=== PATIENT | male | born 1945 | race African-American/Black ===

== ENCOUNTER 2017-12-02 15:23 | Emergency (ER) | payer BC ==
[~2017-12-02] VITALS: Ht 180.3 cm; Wt 90.7 kg
--- NOTE | 2017-12-02 16:31 | Emergency Room Report ---
History of Present Illness General Chief Complaint: Upper Extremity Injury Source: Patient (Alison Chris) Present Illness HPI 72-year-old male presents to the emergency department complaining of 6 out of 10 in severity localized left forearm pain 2 days. Patient reports acute onset of pain after having a left large load out of a truck on his own 2 days ago. Patient denies bruising, swelling, skin color changes orders temperature changes of the extremity. Patient denies pain elsewhere in the body such as chest or jaw. He denies trauma or fall. Denies numbness tingling or loss of sensation or gross motor movements of the extremity. Denies CP, Palpitations, LOC, AMS, dizziness, Changes in Vision, Sensation, paresthesias, or a sudden severe headache. (Alison Chris) Allergies: Coded Allergies: No Known Allergies (Unverified , 12/02/17) Patient History Past Medical History: see triage record Past Surgical History: none Pertinent Family History: none Reviewed Nursing Documentation: PMH: Agreed; PSxH: Agreed (Alison Chris) Nursing Documentation-PMH Past Medical History: No Stated History (Alison Chris) Review of Systems All Other Systems: negative except mentioned in HPI (Alison Chris) Physical Exam Vital Signs Date Time Temp Pulse Resp B/P (MAP) Pulse Ox O2 Delivery O2 Flow Rate FiO2 12/02/17 15:46 97.3 91 16 171/98 95 Room Air 97.3 Sp02 EP Interpretation: reviewed, normal General Appearance: no apparent distress, alert, GCS 15, non-toxic Head: normocephalic, atraumatic ENT: hearing grossly normal, normal voice Neck: full range of motion Respiratory: lungs clear, normal breath sounds, speaking full sentences Cardiovascular #1: regular rate, rhythm, normal capillary refill Musculoskeletal: back normal, gait/station normal, normal range of motion, tender - TTp to the left brachioradialis area. FROM against resistance with some illicitation of pain. normal distal radial pulse. Neurologic: alert, oriented x3, responsive, motor strength/tone normal, sensory intact, speech normal, grossly normal Psychiatric: judgement/insight normal Skin: normal color, no rash, warm/dry, well hydrated Lymphatic: no adenopathy (Alison Chris) Medical Decision Making PA Attestation Dr. vergara is my supervising Physician whom patient management has been discussed with. (Alison Chris) Medicare Attestation The history of Everett Pitts has been reviewed and management options for him have been examined and discussed by Larry Padilla. I have personally examined and interviewed the patient. (Larry Padilla MD) Diagnostic Impression: Primary Impression: Muscle strain of left forearm Qualified Codes: S56.912A - Strain of unspecified muscles, fascia and tendons at forearm level, left arm, initial encounter ER Course 72-year-old male presents to the emergency department complaining of 6 out of 10 in severity localized left forearm pain 2 days. Patient reports acute onset of pain after having a left large load out of a truck on his own 2 days ago. Patient denies bruising, swelling, skin color changes orders temperature changes of the extremity. Patient denies pain elsewhere in the body such as chest or jaw. He denies trauma or fall. Denies numbness tingling or loss of sensation or gross motor movements of the extremity. Denies CP, Palpitations, LOC, AMS, dizziness, Changes in Vision, Sensation, paresthesias, or a sudden severe headache. Ddx considered but are not limited to Fracture, dislocation, contusion, Sprain/ Strain/Spasm, tendonitis, referred pain. Vital signs: are WNL, pt. is afebrile H&PE are most consistent with musculoskeletal injury will perform imaging to r/ o fractures/dislocations. ORDERS: - X-ray [ ] - negative for fx, Dislocation, or significant soft tissue injury, per preliminary read in ED, and signed by OTILIA Chris, my supervising physician has reviewed, and agrees with my interpretation. ED INTERVENTIONS: - [ ] DISCHARGE: At this time pt. is stable for d/c to home. Will provide printed patient care instructions, and any necessary prescriptions. Care plan and follow up instructions have been discussed with the patient prior to discharge. (Alison Chris) Last Vital Signs Date Time Temp Pulse Resp B/P (MAP) Pulse Ox O2 Delivery O2 Flow Rate FiO2 12/02/17 15:46 97.3 91 16 171/98 95 Room Air 97.3 (Alison Chris) Disposition: HOME, SELF-CARE Condition: Stable Scripts Acetaminophen* (TYLENOL EXTRA STRENGTH*) 500 Mg Tablet 500 MG ORAL Q8H, #20 TAB 0 Refills Prov: Alison Chris 12/02/17 Diclofenac Sodium (VOLTAREN) 100 Gm Gel..gram. 1 APPLIC TP BID, #100 GM Prov: Alison Chris 12/02/17 Patient Instructions: Muscle Pain, Adult, Muscle Strain, [id number] Additional Instructions: Take medications as directed. Follow up with a Primary Care Provider in 3-5 days, even if your symptoms have resolved. --Please review list of primary care clinics, if you do not already have a primary care provider Return sooner to ED if new symptoms occur, or current symptoms become worse. - Please note that this Emergency Department Report was dictated using [employer] technology software, occasionally this can lead to erroneous entry secondary to interpretation by the dictation equipment. Alison Chris December 02, 2017 16:31 Larry Padilla MD December 06, 2017 14:01
[2017-12-02 16:34] VITALS: BP 167/96
[2017-12-02] MEDS ORDERED: VOLTAREN100 G1 TP (16:37)
[2017-12-02] MEDS ORDERED: TYLENOL EXTRA500 MG ORAL (16:37)
[2017-12-02 17:33] VITALS: BP 167/96
== END 2017-12-02 16:50 | disposition home or self-care (01) ==
LOC: EMR 16:12
DX: S56.912A Strain of unspecified muscles, fascia and tendons at forearm level, left arm, initial encounter (principal); X50.0XXA Overexertion from strenuous movement or load, initial encounter; Y92.89 Other specified places as the place of occurrence of the external cause
CPT/HCPCS: 99284